=== PATIENT | male | born 1975 | race Caucasian/White ===

== ENCOUNTER 2016-07-23 15:01 | Emergency (ER) | payer SELFPAY | END 2016-07-23 18:00 | disposition home or self-care (01) | LOC: FER 15:01 | DX: S61.211A Laceration without foreign body of left index finger without damage to nail, initial encounter (principal); R03.0 Elevated blood-pressure reading, without diagnosis of hypertension; W27.8XXA Contact with other nonpowered hand tool, initial encounter ==